=== PATIENT | male | born 1980 | race Caucasian/White ===

== ENCOUNTER 2022-12-23 23:55 | Emergency (ER) | payer MEDICAID ==
[~2022-12-23] VITALS: Ht 165.1 cm; Wt 91.0 kg
[2022-12-23 23:59] VITALS: O2SAT 97
[2022-12-24] MEDS ORDERED: ONDANSETRON HCL 4MG/2ML INJ IV STA (00:03)
[2022-12-24] MEDS ORDERED: NALOXONE HCL 1 MG/ML 2ML VIAL IV ONE (00:15)
[2022-12-24] MEDS ORDERED: SODIUM CHLORIDE 0.9% 1,000 ML IV ONE (00:15)
[2022-12-24 00:20] LABS: BASOPHILS % 0.7 % (0.0-2.0); EOSINOPHILS % 1.4 % (0.0-5.0); HEMATOCRIT. 42.9 % (42.0-52.0); HEMOGLOBIN. 14.5 g/dL (14.0-18.0); LYMPHOCYTES % 36.5 % (20.0-50.0); MEAN CORPUSCULAR HEMOGLOBIN 27.5 pg (28.0-32.0); MEAN CORPUSCULAR HGB CONC 33.9 g/dL (31.0-37.0); MONOCYTES % 6.2 % (2.0-8.0); NEUTROPHILS % 55.2 % (40.0-76.0); PLATELET 264 x1000/uL (130-400); RED BLOOD CELL COUNT 5.29 mill/uL (4.7-6.1); WHITE BLOOD COUNT 12.8 x1000/uL (4.5-11.0)
[2022-12-24] MEDS ORDERED: HYDRALAZINE 20MG/ML VIAL IV ONE (00:30)
[2022-12-24 00:32] LABS: AMMONIA 40 uMol/L (<32); CHLORIDE 103 mEq/L (98-107); INDEX HEMOLYSI 4 (1-3); INDEX ICTERIC 1 (1-4); INDEX LIPEMIC 1 (1-3); POTASSIUM 3.6 mEq/L (3.5-5.1); SODIUM 138 mEq/L (136-145)
[2022-12-24 00:41] LABS: ACETAMINOPHEN < 2 ug/mL (10-30); ALANINE AMINOTRANSFERASE 32 IU/L (13-61); ALBUMIN 4.2 g/dL (3.4-5.0); ASPARTATE AMINOTRANSFERASE 34 IU/L (15-37); BILIRUBIN TOTAL 0.3 mg/dL (0.1-1.0); CALCIUM 8.6 mg/dL (8.5-10.1); CARBON DIOXIDE 31 mEq/L (21-32); CREATININE 1.2 mg/dL (0.6-1.3); ETHANOL BLOOD < 10 mg/dL (<10); GLUCOSE 144 mg/dL (70-105); PROTEIN TOTAL 8.4 g/dL (6.0-8.3); UREA NITROGEN BLOOD 17 mg/dL (7-21)
[2022-12-24 01:18] LABS: TROPONIN I HIGH SENSITIVITY 15 ng/L (<78)
[2022-12-24] MEDS ORDERED: NICARDIPINE 50 MG in SODIUM CHLORIDE 0.9% 230 ML IV STA (01:29)
[2022-12-24] MEDS ORDERED: LEVETIRACETAM 500MG PREMIX 100 ML IV ONE (01:30)
[2022-12-24] MEDS ORDERED: NICARDIPINE 40 MG/200 ML PREMIX 200 ML IV PRN (01:45)
[2022-12-24 01:50] LABS: *AMPHETAMINES SCREEN URINE NEGATIVE (NEGATIVE); *BARBITURATES SCREEN URINE NEGATIVE (NEGATIVE); *BENZODIAZEPINES SCREEN URINE NEGATIVE (NEGATIVE); *COCAINE SCREEN URINE NEGATIVE (NEGATIVE); CANNABINOID URINE SCREEN NEGATIVE (NEGATIVE); ECSTASY MDMA SCREEN URINE NEGATIVE (NEGATIVE); METHADONE URINE SCREEN NEGATIVE (NEGATIVE); OPIATES URINE SCREEN NEGATIVE (NEGATIVE); PHENCYCLIDINE URINE SCREEN NEGATIVE (NEGATIVE)
[2022-12-24] MEDS ORDERED: PROPOFOL 10MG/ML 100ML 100 ML IV STA (02:08)
[2022-12-24] MEDS ORDERED: MANNITOL 20% (20GM/100ML) BAG 500ML PREMIX IV ONE (02:15)
[2022-12-24] MEDS ORDERED: MANNITOL 20% 250 ML IV NR (02:15)
[2022-12-24] MEDS ORDERED: DEXAMETHASONE 10 MG/ML VIAL IV ONE (02:15)
[2022-12-24] MEDS ORDERED: ONDANSETRON HCL 4MG/2ML INJ IV ONE (02:15)
[2022-12-24 02:25] VITALS: PULSE 127; RESP 25
[2022-12-24 03:41] VITALS: BP 183/99; PULSE 111; RESP 27; TEMP 99
[2022-12-24 03:41] LABS: BG BASE EXCESS -0.2 mmol/L (-2.0-2.0); BG CARBOXYHEMOGLOBIN 0.1 % (0.5-1.5); BG DEOXYHEMOGLOBIN 0.7 % (0.0-5.0); BG FRACTION INSPIRED OXYGEN 100; BG HCO3 ACT 22.8 mmol/L (22.0-26.0); BG METHEMOGLOBIN 0.4 % (0.0-1.5); BG OXYGEN SATURATION 99.3 % (92.0-98.5); BG OXYHEMOGLOBIN 98.8 % (94.0-97.0); BG PCO2 32.6 mmHg (35.0-45.0); BG PH 7.462 (7.350-7.450); BG PO2 236.6 mmHg (75.0-100.0); BG SAMPLE SITE LEFT RADIAL; BG TOTAL HEMOGLOBIN 14.6 g/dL (12.0-18.0); BG VENT MODE VENT - AC
== END 2022-12-24 04:16 | disposition short-term general hospital (02) ==
LOC: ER 23:55
DX: I62.9 Nontraumatic intracranial hemorrhage, unspecified (principal); I49.9 Cardiac arrhythmia, unspecified
CPT/HCPCS: 82962; 31500 ×2; 99291; 80053; 80305; 80307; 80329; 80320; 82140; 85025; 84484; 36415; 71045; 70450; 82805; 82375; 93005; 96367; 96365; 96375; 96376; 36600; Z7610 ×6; J1953; J1100; J0360; J2310; J2405; J7030; 94002; J3490; J7050; G0480

== ENCOUNTER 2023-06-26 16:05 | Emergency (ER) | payer MEDICAID ==
[~2023-06-26] VITALS: Ht 160 cm; Wt 65.0 kg
[2023-06-26 16:42] VITALS: O2SAT 99
[2023-06-26] MEDS ORDERED: CLONIDINE 0.1MG TABLET PO ONE (18:30)
[2023-06-26 18:41] LABS: HEMATOCRIT 34.6 % (42.0-52.0); HEMOGLOBIN 11.8 g/dL (14.0-18.0); MEAN CORPUSCULAR HEMOGLOBIN 29.5 pg (28.0-32.0); MEAN CORPUSCULAR HGB CONC 34.3 g/dL (31.0-37.0); MEAN CORPUSCULAR VOLUME 86.2 fL (80.0-94.0); PLATELET 227 x1000/uL (130-400); RED BLOOD CELL COUNT 4.01 mill/uL (4.7-6.1); WHITE BLOOD COUNT 7.7 x1000/uL (4.5-11.0)
[2023-06-26 18:45] LABS: CHLORIDE 109 mEq/L (98-107); POTASSIUM 3.6 mEq/L (3.5-5.1); SODIUM 142 mEq/L (136-145)
[2023-06-26 18:46] LABS: CARBON DIOXIDE 29 mEq/L (21-32)
[2023-06-26 18:47] LABS: CALCIUM 9.8 mg/dL (8.7-10.4)
[2023-06-26 18:51] LABS: GLUCOSE 104 mg/dL (70-105); UREA NITROGEN BLOOD 12 mg/dL (9-23)
[2023-06-26] MEDS ORDERED: LABETALOL 5MG/ML SYR 20 MG/4 ML SYRINGE IV ONE (22:45)
[2023-06-26] MEDS: CLONIDINE 0.1MG TABLET PO NR (23:17)
[2023-06-26] MEDS: AMLODIPINE 5MG TABLET PO ONE (23:17)
[2023-06-27] MEDS: LABETALOL 5MG/ML SYR 20 MG/4 ML SYRINGE IV NR (01:31)
[2023-06-27 02:22] VITALS: BP 170/95; PULSE 65; RESP 18; TEMP 98.4
== END 2023-06-26 21:37 | disposition home or self-care (01) ==
LOC: ER 16:05
DX: I16.0 Hypertensive urgency (principal); I10 Essential (primary) hypertension
CPT/HCPCS: 99291; 80048; 85027; 36415; J3490